=== PATIENT | female | born 1995 | race Caucasian/White ===

== ENCOUNTER 2020-12-30 18:54 | Emergency (ER) | payer SELFPAY ==
[~2020-12-30] VITALS: Ht 172.7 cm; Wt 79.0 kg
--- NOTE | 2020-12-30 19:35 | PHYS DOC ---
General Adult EDM: Chief Complaint: BLOOD IN URINE HPI: HPI: 25-year-old female presents with hematuria. She has had blood in her urine for the last couple of days. She noticed more henry blood today and this became concerning. She does not really have any pain. She has had some right-sided low back pain, but this was going on before hematuria. She denies any trauma. No history of kidney stones. She denies fever or chills. Review of Systems: Review of Systems: Constitutional: Denies fever or chills Eyes: Denies change in visual acuity HENT: Denies nasal congestion or sore throat Respiratory: Denies cough or shortness of breath Cardiovascular: Denies chest pain or edema GI: Denies abdominal pain, nausea, vomiting, bloody stools or diarrhea : Denies dysuria Musculoskeletal: Denies back pain or joint pain Integument: Denies rash Neurologic: Denies headache, focal weakness or sensory changes Endocrine: Denies polyuria or polydipsia Lymphatic: Denies swollen glands Psychiatric: Denies depression or anxiety Physical Exam: PE: Constitutional: Well developed, well nourished, no acute distress, non-toxic appearance. [] HENT: Normocephalic, atraumatic, bilateral external ears normal, oropharynx moist, no oral exudates, nose normal. [] Eyes: PERRLA, EOMI, conjunctiva normal, no discharge. [] Neck: Normal range of motion, no tenderness, supple, no stridor. [] Cardiovascular:Heart rate regular rhythm, no murmur [] Lungs & Thorax: Bilateral breath sounds clear to auscultation [] Abdomen: Bowel sounds normal, soft, no tenderness, no masses, no pulsatile masses. [] Skin: Warm, dry, no erythema, no rash. [] Back: No tenderness, no CVA tenderness. [] Extremities: No tenderness, no cyanosis, no clubbing, ROM intact, no edema. [] Neurologic: Alert and oriented X 3, normal motor function, normal sensory function, no focal deficits noted. [] Psychologic: Affect normal, judgement normal, mood normal. [] EKG: EKG: [] Radiology/Procedures: Radiology/Procedures: [] Heart Score: C/O Chest Pain: N/A Risk Factors: Risk Factors: DM, Current or recent (<one month) smoker, HTN, HLP, family history of CAD, obesity. Risk Scores: Score 0 - 3: 2.5% MACE over next 6 weeks - Discharge Home Score 4 - 6: 20.3% MACE over next 6 weeks - Admit for Clinical Observation Score 7 - 10: 72.7% MACE over next 6 weeks - Early Invasive Strategies Course & Med Decision Making: Course & Med Decision Making Pertinent Labs and Imaging studies reviewed. (See chart for details) The patient is not . Her urine shows trace blood, but no signs of infection. This could have been spontaneous bladder bleeding. It could have been mixed with intermenstrual vaginal bleeding. I have advised that she follow-up in 1 to 2 weeks to make sure the hematuria resolves. She is stable for discharge at this time. [] Aby Disclaimer: Aby Disclaimer: This electronic medical record was generated, in whole or in part, using a voice recognition dictation system. Departure Departure: Impression: Primary Impression: Hematuria Disposition: HOME / SELF CARE / HOMELESS Condition: STABLE Referrals: PCPBRAYDON (PCP) Patient Instructions: Hematuria, Adult JEREMY GOINS DO Dec 30, 2020 19:35
[2020-12-30 20:01] LABS: BILIRUBIN,URINE MOD (NEG); CLARITY,URINE CLEAR; COLOR,URINE YELLOW; GLUCOSE,URINE NEG (NEG); NITRITE,URINE NEG (NEG); UROBILINOGEN,URINE 0.2 mg/dL (0.2 mg/dL)
[2020-12-30 20:02] LABS: WBC,URINE RARE /HPF (0-4)
[2020-12-30 20:03] LABS: BACTERIA,URINE 0 /HPF (0-FEW); RBC,URINE 0 /HPF (0-2); SQUAMOUS EPITHELIAL CELL,UR FEW /LPF
[2020-12-30 20:30] VITALS: BP 140/81
== END 2020-12-30 20:30 | disposition home or self-care (01) ==
LOC: ER 18:54
DX: R31.9 Hematuria, unspecified (principal); M54.59 Other low back pain
CPT/HCPCS: 81001; 81025; 99283

== ENCOUNTER 2021-02-19 03:24 | Emergency (ER) | payer SELFPAY ==
[~2021-02-19] VITALS: Ht 172.7 cm; Wt 75.9 kg
--- NOTE | 2021-02-19 03:29 | PHYS DOC ---
Past History Past Surgical History: No Surgical History (RIMA DARBY MD) Alcohol Use: None (RIMA DARBY MD) General Adult HPI: HPI: Patient is a 25 year old female who presents with above hx and complaints of headache. See Dr. Benavides chart for details. (RIMA DARBY MD) HPI: 25-year-old female coming in for 3 days of left-sided headache that is in the posterior part of her head. She describes the pain is dull. Patient woke up around 2:30 AM with nausea and noticed that her left pupil was larger than the right. Denies any hearing loss from eyes. Patient says she has had rhinorrhea fr om the left side as well. Denies any trauma other than falling while she was running about 2 weeks ago but she says she caught herself did not hit her head. Denies any history of migraines. States she has not had any fevers or neck stiffness. (ANUSHA BENAVIDES MD) Review of Systems: Review of Systems: Constitutional: Denies fever or chills Eyes: Denies change in visual acuity HENT: Denies nasal congestion or sore throat Respiratory: Denies cough or shortness of breath Cardiovascular: Denies chest pain or edema GI: Denies abdominal pain, nausea, vomiting, bloody stools or diarrhea : Denies dysuria Musculoskeletal: Denies back pain or joint pain Integument: Denies rash Neurologic: Complains of headache,. Denies focal weakness or sensory changes Endocrine: Denies polyuria or polydipsia Lymphatic: Denies swollen glands Psychiatric: Denies depression or anxiety (RIMA DARBY MD) Review of Systems: All other systems within normal limits except for as noted in the HPI (ANUSHA BENAVIDES MD) Family History: Family History: Noncontributory to presentation (RIMA DARBY MD) Current Medications: Current Meds: See nursing for home meds (RIMA DARBY MD) Allergies: Allergies: Allergies Coded Allergies Type Severity Reaction Last Updated Verified No Known Drug Allergies 12/30/20 No (RIMA DARBY MD) Physical Exam: PE: See Sonia chart for exam (RIMA DARBY MD) PE: Constitutional: Well developed, well nourished, no acute distress, non-toxic appearance. [] HENT: Normocephalic, atraumatic, bilateral external ears normal, nose normal. Bilateral TMs normal. [] Eyes: PERRLA, conjunctiva normal, no discharge. Extraocular movements intact [] Neck: No rigidity, supple, no stridor. [] Cardiovascular: Regular rate and rhythm, brisk cap refill [] Lungs & Thorax: Non labored symmetric respirations, no tachypnea or respiratory distress [] Abdomen: Soft, nondistended. Skin: Warm, dry, no erythema, no rash. [] Back: Unremarkable Extremities: No deformities, range of motion grossly intact, no lower extremity edema [] Neurologic: Alert and oriented X 3, no focal deficits noted. Cranial nerves symmetric [] Psychologic: Affect normal, judgement normal, mood normal. [] (ANUSHA BENAVIDES MD) EKG: EKG: [] (RIMA DARBY MD) Radiology/Procedures: Radiology/Procedures: [] (RIMA DARBY MD) Radiology/Procedures: [place] [address] IMAGING REPORT Signed PATIENT: MALIK NOYOLA ACCOUNT: [id number] : 1995 LOCATION: ER AGE: 25 SEX: F EXAM STATUS: REG ER ORD. PHYSICIAN: ANUSHA BENAVIDES MD REASON: left headache with anisocoria PROCEDURE: CT ANGIOGRAPHY HEAD AND NECK EXAM: CTA HEAD AND NECK W/WO CONTRAST, CT HEAD/BRAIN WO DATE: 02/19/2021 6:50 AM INDICATION: left headache with anisocoria TECHNIQUE: 5 mm axial tomographic images were obtained through the head before contrast. CTA angiogram of the head and neck was obtained after IV bolus administration of intravenous contrast. The images were sent to workstation and multiplanar reconstructions were obtained. Multiplanar reconstruction images to include MIP and 3-D reconstruction images are submitted. One or more of the following dose reduction techniques were utilized: Automated exposure control (AEC), Adjustment of mA and/or kV according to patient size, Use of iterative reconstruction technique such as ASiR, CT scan done according to ALARA and image gently/image wisely COMPARISON: None. FINDINGS: Noncontrast CT: The brain parenchyma is normal in attenuation. No intra- or extra-axial mass or fluid collection. No hyperdense intracranial hemorrhage. The ventricles are normal in size and configuration without midline shift. There is normal rodriguez- white matter differentiation. The subarachnoid cisterns are patent. The visualized paranasal sinuses are well aerated. The mastoid air cells are clear. The visualized portions of the orbits are normal. No aggressive osseous lesion or fracture. CTA Head: The visualized distal internal carotid arteries, anterior and middle cerebral arteries are patent and normal caliber. The distal vertebral arteries, basilar artery, and posterior cerebral arteries are patent and normal caliber. No aneurysm or arteriovenous malformation is seen. CTA Neck: Right carotid: The right common carotid artery is patent and normal caliber. The carotid bifurcation is normal. No stenosis of the right internal carotid artery per NASCET criteria. The right external carotid artery is patent. Left carotid: The left common carotid artery is patent and normal caliber. The carotid bifurcation is normal. No stenosis of the left internal carotid artery per NASCET criteria. The left external carotid artery is patent. Right vertebral: The right vertebral artery is patent and normal caliber. Left vertebral: The left vertebral artery is patent and is dominant. The visualized portions of the aortic arch are normal. The origins of the brachiocephalic and subclavian arteries are normal. No cervical lymphadenopathy. Right thyroidectomy. The parotid and submandibular glands are normal. The visualized aerodigestive tract is unremarkable. The cervical spine is normal. The visualized portions of the lungs are clear. IMPRESSION: 1. No acute intracranial process by noncontrast head CT. 2. No aneurysm. No intracranial stenosis or occlusion. 3. No stenosis of the cervical carotid or vertebral arteries. PQRS Compliance Statement - Stenosis calculations for CT, MR and conventional angiography are based upon measurement of the distal ICA diameter in accordance with the NASCET methodology. Electronically signed by: Mackenzie Galeana MD (02/19/2021 7:45 AM) [id number] DICTATED AND SIGNED BY: MACKENZIE GALEANA MD DATE: 02/19/21 0732 CC: ANUSHA BENAVIDES MD; PCP,NO ~MTH0 0 (ANUSHA BENAVIDES MD) Heart Score: C/O Chest Pain: N/A Risk Factors: Risk Factors: DM, Current or recent (<one month) smoker, HTN, HLP, family history of CAD, obesity. Risk Scores: Score 0 - 3: 2.5% MACE over next 6 weeks - Discharge Home Score 4 - 6: 20.3% MACE over next 6 weeks - Admit for Clinical Observation Score 7 - 10: 72.7% MACE over next 6 weeks - Early Invasive Strategies (RIMA DARBY MD) C/O Chest Pain: No (ANUSHA BENAVIDES MD) Course & Med Decision Making: Course & Med Decision Making Pertinent Labs and Imaging studies reviewed. (See chart for details) See Benavides chart for details on this pt. [] (RIMA DARBY MD) Course & Med Decision Making Patient greater than with headache and concerned that she might have a brain tumor. Has mild leukocytosis but denies any fever, has had some congestion. Denies any ear symptoms or neck stiffness. Work-up unremarkable. On exam patient's oximeters are intact and pupils are equal and reactive to light. No mastoid tenderness, no cervical lymphadenopathy. Patient's headache treated and given return precautions. (ANUSHA BENAVIDES MD) Dragon Disclaimer: Dragon Disclaimer: This electronic medical record was generated, in whole or in part, using a voice recognition dictation system. (RIMA DARBY MD) Departure Departure: Impression: Primary Impression: Headache Disposition: HOME / SELF CARE / HOMELESS Condition: STABLE Referrals: PCP,BRAYDON (PCP) Patient Instructions: General Headache Without Cause RIMA DARBY MD Feb 19, 2021 03:29 ANUSHA BENAVIDES MD Feb 19, 2021 06:46
[2021-02-19 05:08] VITALS: BP 146/88
[2021-02-19] MEDS ORDERED: CONTRAST GIVEN. MC PRN (07:00)
[2021-02-19 07:24] LABS: BASO % 0 % (0-3); EOS % 0 % (0-3); HEMATOCRIT 39.3 % (36.0-47.0); HEMOGLOBIN 12.8 g/dL (12.0-15.5); LYMPH # 1.3 x10^3/uL (1.0-4.8); LYMPH % 9 % (24-48); MEAN CORPUSCULAR HEMOGLOBIN 27 pg (25-35); MEAN CORPUSCULAR HGB CONC 33 g/dL (31-37); MEAN CORPUSCULAR VOLUME 84 fL (79-100); MONO # 0.7 x10^3/uL (0.0-1.1); MONO % 5 % (0-9); NEUT # 12.9 x10^3uL (1.8-7.7); NEUT % 86 % (31-73); PLATELET COUNT 292 x10^3/uL (140-400); RED BLOOD COUNT 4.68 x10^6/uL (3.50-5.40); RED CELL DISTRIBUTION WIDTH 13.3 % (11.5-14.5); WHITE BLOOD COUNT 14.9 x10^3/uL (4.0-11.0)
[2021-02-19 07:25] LABS: CALCIUM 8.9 mg/dL (8.5-10.1); CREATININE 0.8 mg/dL (0.6-1.0); GFR 87.4; POTASSIUM 3.4 mmol/L (3.5-5.1)
[2021-02-19] MEDS ORDERED: IOHEXOL 350 MG/ML 100 ML VIAL. IV ONE (07:30)
[2021-02-19 07:31] LABS: ALBUMIN/GLOBULIN RATIO 1.1 (1.0-1.7); TOTAL BILIRUBIN 0.3 mg/dL (0.2-1.0); TOTAL PROTEIN 7.8 g/dL (6.4-8.2)
[2021-02-19 07:45] LABS: BACTERIA,URINE 0 /HPF (0-FEW); BILIRUBIN,URINE SMALL (NEG); CLARITY,URINE HAZY; COLOR,URINE YELLOW; GLUCOSE,URINE NEG (NEG); NITRITE,URINE NEG (NEG); RBC,URINE OCC /HPF (0-2); SQUAMOUS EPITHELIAL CELL,UR MOD /LPF; UROBILINOGEN,URINE 0.2 mg/dL (0.2 mg/dL)
--- NOTE | 2021-02-19 07:47 | RAD ---
EXAM: CTA HEAD AND NECK W/WO CONTRAST, CT HEAD/BRAIN WO DATE: 02/19/2021 6:50 AM INDICATION: left headache with anisocoria TECHNIQUE: 5 mm axial tomographic images were obtained through the head before contrast. CTA angiogra m of the head and neck was obtained after IV bolus administration of intravenous contrast. The images were sent to workstation and multiplanar reconstructions were obtained. Multiplanar reconstruction images to include MIP and 3-D reconstruction images are submitted. One or more of the following dose reduction techniques were utilized: Automated exposure control (AEC ), Adjustment of mA and/or kV according to patient size, Use of iterative reconstruction technique so ch as ASiR, CT scan done according to ALARA and image gently/image wisely COMPARISON: None. FINDINGS: Noncontrast CT: The brain parenchyma is normal in attenuation. No intra- or extra-axial mass or fluid collection. No hyperdense intracranial hemorrhage. The ventricles are normal in size and configuration without midli ne shift. There is normal rodriguez-white matter differentiation. The subarachnoid cisterns are patent. The visualized paranasal sinuses are well aerated. The mastoid air cells are clear. The visualized po rtions of the orbits are normal. No aggressive osseous lesion or fracture. CTA Head: The visualized distal internal carotid arteries, anterior and middle cerebral arteries are patent and normal caliber. The distal vertebral arteries, basilar artery, and posterior cerebral arteries are p atent and normal caliber. No aneurysm or arteriovenous malformation is seen. CTA Neck: Right carotid: The right common carotid artery is patent and normal caliber. The carotid bifurcation is normal. No stenosis of the right internal carotid artery per NASCET criteria. The right external c arotid artery is patent. Left carotid: The left common carotid artery is patent and normal caliber. The carotid bifurcation is normal. No stenosis of the left internal carotid artery per NASCET criteria. The left external carot id artery is patent. Right vertebral: The right vertebral artery is patent and normal caliber. Left vertebral: The left vertebral artery is patent and is dominant. The visualized portions of the aortic arch are normal. The origins of the brachiocephalic and subclav christelle arteries are normal. No cervical lymphadenopathy. Right thyroidectomy. The parotid and submandibular glands are normal. Th e visualized aerodigestive tract is unremarkable. The cervical spine is normal. The visualized portions of the lungs are clear. IMPRESSION: 1. No acute intracranial process by noncontrast head CT. 2. No aneurysm. No intracranial stenosis or occlusion. 3. No stenosis of the cervical carotid or vertebral arteries. PQRS Compliance Statement - Stenosis calculations for CT, MR and conventional angiography are based u deanne measurement of the distal ICA diameter in accordance with the NASCET methodology. Electronically signed by: Rufus Galeana MD (02/19/2021 7:45 AM) [id number]
[2021-02-19] MEDS ORDERED: KETOROLAC 15 MG/ML VIAL. IVP ONE (08:00)
[2021-02-19] MEDS ORDERED: PROCHLORPERAZINE 10 MG/2 ML VIAL. IM ONE (08:15)
[2021-02-19] MEDS ORDERED: diphenhydrAMINE 50 MG/ML VIAL IM ONE (08:15)
[2021-02-19] MEDS ORDERED: KETOROLAC 30 MG/ML VIAL. ONE (08:21)
== END 2021-02-19 08:30 | disposition home or self-care (01) ==
LOC: ER 03:24
DX: R51.9 Headache, unspecified (principal); R11.0 Nausea; J34.89 Other specified disorders of nose and nasal sinuses
CPT/HCPCS: 36415; 70450; 70496; 70498; 80053; 81001; 81025; 85025; 96372; 96374; 99284; J0780; J1200; J1885; Q9967